=== PATIENT | female | born 1980 | race American Indian/Alaskan Native ===

== ENCOUNTER 2020-01-05 08:52 | Day surgery (SDC) | payer MEDICAID ==
[2020-01-01 12:20] LABS: Hematocrit 33.9 % (30.3-42.9); Hemoglobin 11.3 gm/dl (10.1-14.3); Mean Corpuscular HGB Conc 33 % (30-34); Mean Corpuscular Volume 83 fl (79-97); Platelet Count 282 K/mm3 (140-440); Red Blood Count 4.07 M/mm3 (3.65-5.03)
[2020-01-01 12:28] LABS: Red Cell Distribution Width 25.2 % (13.2-15.2)
[~2020-01-05 08:52] MED LIST: LACTATED RINGERS 1,000 ML IV SCH; MIDAZOLAM 2 MG/2 ML INJ IV NR; fentaNYL 100 MCG/2 ML INJ IV PRN
--- NOTE | 2020-01-05 08:52 | Anesthesia Day of Surgery ---
Anesthesia Day of Surgery - Day of Surgery Patient Examined: Yes Patient H&P Reviewed: Yes Patient is NPO: Yes
--- NOTE | 2020-01-05 08:52 | Anesthesia Consultation ---
Anesthesia Consult and Med Hx Date of service: 01/05/20 - Airway Anesthetic Teeth Evaluation: Good ROM Head & Neck: Adequate Mental/Hyoid Distance: Adequate Mallampati Class: Class I Intubation Access Assessment: Good (tongue ring; patient will remove) - Pulmonary Exam CTA: Yes - Cardiac Exam Cardiac Exam: RRR - Pre-Operative Health Status ASA Pre-Surgery Classification: ASA3 Proposed Anesthetic Plan: General - Pulmonary Hx Smoking: Yes Hx Respiratory Symptoms: No - Cardiovascular System Hx Hypertension: No Hx Heart Attack/AMI: No - Central Nervous System CVA: No - Gastrointestinal Hx Gastroesophageal Reflux Disease: Yes (asymptomatic today) - Endocrine Hx Renal Disease: No Hx Liver Disease: No Hx Insulin Dependent Diabetes: No Hx Non-Insulin Dependent Diabetes: No Hx Thyroid Disease: No - Other Systems Hx Obesity: Yes (BMI 42) - Additional Comments Anesthesia Medical History Comments: No hx anesthetic complications.
[2020-01-05] MEDS ORDERED: SILVER NITRATE APPLICATOR 1 EA TP ONE (09:01)
[2020-01-05] MEDS ORDERED: ePHEDrine SULFATE 50 MG/1 ML INJ ONE (09:04)
[2020-01-05] MEDS ORDERED: ONDANSETRON 4 MG/2 ML INJ ONE (09:29)
[2020-01-05] MEDS ORDERED: propofoL 200 MG/20 ML VIAL IV ONE (09:29)
[2020-01-05] MEDS ORDERED: fentaNYL 100 MCG/2 ML INJ ONE (09:29)
[2020-01-05] MEDS ORDERED: GLYCOPYRROLATE 0.4 MG/2 ML INJ ONE (09:29)
[2020-01-05] MEDS ORDERED: LIDOCAINE MPF (2%) 20 MG/1 ML VIAL 5 ML ONE (09:29)
[2020-01-05] MEDS ORDERED: dexAMETHasone 20 MG/5 ML VIAL ONE (09:29)
[2020-01-05] MEDS ORDERED: PHENYLEPHRINE/NS 1,000 MCG/10 ML SYRINGE (OR USE) IV ONE (09:29)
[2020-01-05] MEDS ORDERED: SODIUM CHLORIDE 0.9% IRRIG SOLN 3000 ML IR ONE (10:15)
--- NOTE | 2020-01-05 10:24 | Post Operative Note ---
Pre-op diagnosis: Menorrhagia Post-op diagnosis: same Findings: Normal endometrial cavity. No polyps myomas or lesions were noted. Both ostia were well visualized. The uterine cavity length was 6 cm and the width was 4.5 cm. Uterus is anteverted. Procedure: Indication: Patient is a 39-year-old -0-1-4 with issues with chronic menorrhagia and anemia. Patient's hemoglobin was 7.4 earlier this spring but recently was up to 11.3 with iron. Preop ultrasound suggested a 1.6 cm myoma although there was no significant indentation noted into the endometrium. Patient had normal preop endometrial biopsy.. Procedure: Patient was taken to the operating room and prepped and draped in the usual fashion. Bimanual exam was done. Findings noted above. Single tooth tenaculum was applied to the anterior lip of the cervix. Uterus was sounded and then adequately dilated for the placement of the hysteroscope which was done without difficulty. Hysteroscopic findings noted above. Measurement for the NovaSure device was done. Hysteroscope then removed and sharp endometrial curettage was performed until a good cry was noted throughout. NovaSure device was then placed at this point. The cavity test was performed. It passed and the ablation was performed to its completion without difficulty. NovaSure device and single-tooth tenaculum were removed. Good hemostasis noted throughout. Procedure concluded at this point. Patient tolerated the procedure well. All instrument and lap counts were correct. Patient taken to the recovery in stable condition. Anesthesia: GETA Surgeon: GREG TRAN Estimated blood loss: minimal Pathology: list (Endometrial curettings) Specimen disposition: to lab Condition: stable Disposition: PACU
--- NOTE | 2020-01-05 10:29 | Short Stay Summary ---
Short Stay Documentation Date of service: 01/05/20 Narrative H&P: Patient presented for a D&C hysteroscopy and NovaSure endometrial ablation for chronic menorrhagia. Please see operative report for details. Procedure was uncomplicated. - History Principal diagnosis: Menorrhagia H&P: obtained from office - Allergies and Medications Current Medications: Allergies sulfamethoxazole [From Bactrim] Allergy (Verified 12/30/19 12:56) Itching trimethoprim [From Bactrim] Allergy (Verified 12/30/19 12:56) Itching Home Medications Medication Instructions Recorded Confirmed Last Taken Type Naproxen [Naprosyn] 500 mg PO Q12H 12/30/19 12/30/19 12/29/19 History oxyCODONE /ACETAMINOPHEN [Percocet 1 tab PO Q6HR PRN 12/30/19 12/30/19 12/29/19 History 5/325] Ibuprofen [Motrin 600 MG tab] 600 mg PO Q8H PRN #30 tablet 01/05/20 Unknown Rx Active Medications Fentanyl (Sublimaze) 50 mcg IV Q5MIN PRN PRN Reason: Pain , Severe (7-10) Lactated Ringer's (Lactated Ringers) 1,000 mls @ 100 mls/hr IV DIRECT JAILENE Stop: 01/05/20 23:59 Last Admin: 01/05/20 09:10 Dose: 100 mls/hr Documented by: Midazolam HCl (Versed) 2 mg IV PREOP NR Stop: 01/05/20 23:59 Last Admin: 01/05/20 09:23 Dose: 2 mg Documented by: - Hospital course Hospital course: Patient had a scheduled D&C hysteroscopy and NovaSure endometrial ablation on 01/05/2020. Procedure was uncomplicated. Please see op report for details. Patient to return office for follow-up in 4 weeks. - Disposition Condition at discharge: Stable Disposition: [id number] TO HOME OR SELFCARE - Discharge Diagnoses (1) Menorrhagia Status: Acute Short Stay Discharge Plan Follow up with: GREG TRAN MD [Staff Physician] - 02/05/20 Prescriptions: Ibuprofen [Motrin 600 MG tab] 600 mg PO Q8H PRN #30 tablet PRN Reason: Pain
--- NOTE | 2020-01-05 12:32 | Post Anesthesia Evaluation ---
- Post Anesthesia Evaluation Patient Participated: Yes Airway Patent: Yes Stable Respiratory Function: Yes Nausea/Vomiting: No Temp > 96.8F: Yes Pain Manageable: Yes Adequeate Hydration: Yes Anesthesia Complications: No
[2020-01-05 19:58] VITALS: BP 120/78
== END 2020-01-05 08:53 | disposition home or self-care (01) ==
LOC: OR 08:52
PROVIDERS: ATTEND Obstetrics & Gynecology
DX: N92.0 Excessive and frequent menstruation with regular cycle (principal); N84.0 Polyp of corpus uteri; Z11.59 Encounter for screening for other viral diseases; D64.9 Anemia, unspecified; G43.909 Migraine, unspecified, not intractable, without status migrainosus; K21.9 Gastro-esophageal reflux disease without esophagitis; F17.210 Nicotine dependence, cigarettes, uncomplicated; E66.9 Obesity, unspecified; Z98.891 History of uterine scar from previous surgery; M19.90 Unspecified osteoarthritis, unspecified site; Z98.890 Other specified postprocedural states; Z88.2 Allergy status to sulfonamides; Z79.899 Other long term (current) drug therapy; Z86.2 Personal history of diseases of the blood and blood-forming organs and certain disorders involving the immune mechanism; Z88.8 Allergy status to other drugs, medicaments and biological substances; Z68.41 Body mass index [BMI] 40.0-44.9, adult
CPT/HCPCS: 36415; 58563; 84703; 85027; 88305; A4217; J1100; J2250; J2370; J2405; J2704; J3010; J7120; U0003